=== PATIENT | female | born 1940 ===

== ENCOUNTER 2020-08-16 11:04 | Day surgery (SDC) | payer MEDICARE, BC ==
[~2020-08-16] VITALS: Ht 156.2 cm; Wt 63.5 kg
[2020-08-16] VITALS (10 sets, daily range): BP systolic 109–150; BP diastolic 52–87; PULSE 55–81; TEMP 97.5–98.5
[2020-08-16 12:26] LABS: HEMATOCRIT 41.7 % (37.0-47.0); HEMOGLOBIN 12.3 g/dl (12.5-16.0); MEAN CELL VOLUME 79 fl (80.0-100.0); MEAN CORPUSCULAR HEMOGLOBIN 23 pg (27.0-31.0); MEAN CORPUSCULAR HGB CONC 30 g/dl (33.0-37.0); MEAN PLATELET VOLUME 9.6 fl (7.4-10.4); PLATELET COUNT 728 K/mm3 (130-400); REDCELL DISTRIBUTION WIDTH-CV 15.7 % (11.5-14.5)
[2020-08-16] MEDS ORDERED: TYLENOL 325MG325 MG PO (12:35)
[2020-08-16] MEDS ORDERED: ASPIRIN E.C. 8181 MG PO (12:35)
[2020-08-16] MEDS ORDERED: NORVASC 5MG5 MG/TAB PO (12:35)
[2020-08-16] MEDS ORDERED: CALCIUM 600-D 61 TAB PO (12:36)
[2020-08-16] MEDS ORDERED: ESTRACE0.1 MG/GM VG (12:37)
[2020-08-16] MEDS ORDERED: PEPCID 20MG TAB20 MG PO (12:37)
[2020-08-16] MEDS ORDERED: SYNTHROID0.075 MG/T PO (12:38)
[2020-08-16] MEDS ORDERED: CLARITIN 1010 MG/TAB PO (12:38)
[2020-08-16] MEDS ORDERED: COZAAR 50MG50 MG/TAB PO (12:39)
[2020-08-16] MEDS ORDERED: BLINK TEARS15 ML OP (12:40)
[2020-08-16] MEDS ORDERED: PROLIA60 MG/ML INJ (12:42)
--- NOTE | 2020-08-16 12:43 | NUR ---
TO RM 4 AT 1139- CALL LIGHT IN REACH AND DAUGHTER
--- NOTE | 2020-08-16 19:26 | NUR ---
Patient resting in bed. Spouse at bedside. SHe is more awake now. Vss on O2. Robotic lap site x5 edges well approximated. Garcia to DD with great yellow clear urine output. She is tolerating clear liquids without nausea. Patient was hesitent to take any medications. Did talk her into taking tyelnol per eras schedule. She reports gas pain, offered to get patient out of bed, she reports she was not quite ready yet. Scds ble. Ivf per orders to Lfa. Bedside report to night nurse
[2020-08-17 00:28] VITALS: BP 129/60; PULSE 51; TEMP 97.6
[2020-08-17 04:17] VITALS: BP 134/72; PULSE 58; TEMP 97.5
--- NOTE | 2020-08-17 06:00 | NUR ---
PATIENT A+OX4, HAD AN UNEVENTFUL NIGHT. VSS, PAIN MANAGE WITH TYLENOL AND TORADOL SCHEDULE. ABDOMINAL LAP SITE INTACT WITH NO DRAINAGE NOTED. ELDRIDGE CATHETER DISCONTINUED AT 05:45AM. PATIENT TOLERATED GENERAL DIET, DENIES NAUSEA/VOMITING. WILL CONTINUE TO MONITOR.
[2020-08-17 07:54] VITALS: BP 112/46; PULSE 57; TEMP 98
--- NOTE | 2020-08-17 08:00 | NUR ---
Patient is in bed, alert and oriented x 4, vital signs stable, reports no pain, tylenol in schedule. No nausea or vomiting. The 5 lap. sites are dry, and well approximated. No further needs at the moment. Call light within reach.
--- NOTE | 2020-08-17 10:12 | NUR ---
Initial visit; Patient thanked Architect Internship for looking in on her and offering God's blessings.
--- NOTE | 2020-08-17 10:44 | NUR ---
AGREE WITH JUAN R'S ASSESSMENTS CHARTED THIS AM.
--- NOTE | 2020-08-17 11:33 | NUR ---
Image Assembler met with the patient and the patient's Ameya to complete intake. The patient lives in [place] with Ameya. The patient has cane but does not need it and is independent. The patient's PCP is Dr. Aniceto Muniz and patient receives medications from [place] [facility]. The patient does not have advanced directives in the EMR but states she has forms to complete at home. The patient plans to return home at discharge with no concerns about doing so. *Discharge disposition: Home with spouse, Ameya*
[2020-08-17 12:00] VITALS: BP 104/47; PULSE 55; TEMP 98.4
--- NOTE | 2020-08-17 12:56 | NUR ---
Patient is resting in bed. She was able to transfer herself to the chair. She is waiting for lunch. No further needs at this time.
[2020-08-17 15:37] VITALS: BP 122/62; PULSE 57; TEMP 98.6
--- NOTE | 2020-08-17 16:06 | NUR ---
PT UP TO BR VOIDED AND RETURNED TO RECLINER WITH SBA. AMBULATES WITH SLOW STEADY GAIT.
--- NOTE | 2020-08-17 16:22 | NUR ---
UP DATED DR MILLER ON PT STATUS. DISCHARGE ORDERS RECIEVED.
--- NOTE | 2020-08-17 16:42 | NUR ---
Discharge instructions were provided to the patients, questions were answered.
== END 2020-08-17 16:40 | disposition home or self-care (01) ==
LOC: SDCO 11:04 → SURG 16:15 → SDCO 16:15 → EDSTATUS 16:15 → SURG 16:21 → SDCO 08-17 16:40
PROVIDERS: Registered Nurse
DX: N99.3 Prolapse of vaginal vault after hysterectomy (principal); I10 Essential (primary) hypertension; E07.9 Disorder of thyroid, unspecified; K21.9 Gastro-esophageal reflux disease without esophagitis; Z85.3 Personal history of malignant neoplasm of breast; Z20.822 Contact with and (suspected) exposure to COVID-19; Z79.899 Other long term (current) drug therapy; Z79.890 Hormone replacement therapy; Z79.82 Long term (current) use of aspirin
CPT/HCPCS: OP; A4314; C1781; J0690; J1885; J2405; J2704; J3010; J7120

== ENCOUNTER 2021-07-03 07:18 | Day surgery (SDC) | payer MEDICARE, BC ==
[~2021-07-03] VITALS: Ht 157.5 cm; Wt 62.5 kg
[~2021-07-03 07:18] MED LIST: ASPIRIN E.C. 8181 MG PO; BLINK TEARS15 ML OP; CALCIUM 600-D 61 TAB PO; CLARITIN 1010 MG/TAB PO; COZAAR 50MG50 MG/TAB PO; ESTRACE0.1 MG/GM VG; NORVASC 5MG5 MG/TAB PO; PEPCID 20MG TAB20 MG PO; PROLIA60 MG/ML INJ; SYNTHROID0.075 MG/T PO; TYLENOL 325MG325 MG PO
[2021-07-03] MEDS ORDERED: GENTLE LAXATIVE5 MG PO (07:50)
[2021-07-03 07:53] VITALS: BP 145/73; PULSE 72; TEMP 97.9
[2021-07-03 08:25] LABS: BASO # 0.2 K/mm3 (0.0-0.2); BASO % 1.4 % (0.0-2.0); EOS # 0.4 K/mm3 (0.0-0.7); EOS % 2.7 % (0.0-4.0); GRAN # 9.6 K/mm3 (1.4-6.5); GRAN % 70.4 % (42.2-75.2); HEMATOCRIT 42.5 % (37.0-47.0); HEMOGLOBIN 12.2 g/dl (12.5-16.0); LYMPH # 2.5 K/mm3 (1.2-3.4); LYMPH % 18.2 % (20.0-51.0); MEAN CELL VOLUME 75 fl (80.0-100.0); MEAN CORPUSCULAR HEMOGLOBIN 22 pg (27-31); MEAN CORPUSCULAR HGB CONC 29 g/dl (33.0-37.0); MEAN PLATELET VOLUME 9.7 fl (7.4-10.4); MONO # 0.9 K/mm3 (0.1-0.6); MONO % 6.7 % (1.7-9.3); PLATELET COUNT 1028 K/mm3 (130-400); RED BLOOD COUNT 5.64 M/mm3 (4.10-5.30); REDCELL DISTRIBUTION WIDTH-CV 16.4 % (11.5-14.5)
[2021-07-03 09:30] VITALS: BP 117/63; PULSE 66; TEMP 97.9
[2021-07-03 09:45] VITALS: BP 116/65; PULSE 67
[2021-07-03 10:00] VITALS: BP 129/60; PULSE 71
--- NOTE | 2021-07-03 10:13 | NUR ---
0930: Patient arrived back into bay 6 from PACU. Patient is alert and oriented. Vital signs stable. Report received from FADI Schumacher. Patient requesting muffin and juice. Patient rating pain 0/10. Denies nausea. Call light left within reach. at bedside. 0945: Patient vitally stable. Tolerating food and drink well. Denies pain or nausea at this time. 1005: Patient able to void successfully. Meets discharge criteria. IV removed without complications. Went through discharge instructions with patient and . Patient got dressed. Escorted to patient entrance via wheelchair. Patient got into personal vehicle unassisted and left in the care of her , Ameya.
[2021-07-03 11:42] VITALS: BP 117/63; PULSE 80
== END 2021-07-03 10:10 | disposition home or self-care (01) ==
LOC: SDCO 07:18
PROVIDERS: Pathology Anatomic Pathology & Clinical Pathology
DX: D47.3 Essential (hemorrhagic) thrombocythemia (principal); D72.829 Elevated white blood cell count, unspecified; Z79.82 Long term (current) use of aspirin
CPT/HCPCS: J2704; J7120

== ENCOUNTER 2023-11-25 17:59 | Observation (INO) | payer MEDICARE, BC ==
[~2023-11-25] VITALS: Ht 157.5 cm; Wt 62.9 kg
[~2023-11-25 17:59] MED LIST changes: +GENTLE LAXATIVE5 MG PO
[2023-11-25 18:45] LABS: BASO # 0.1 K/mm3 (0.0-0.2); BASO % 0.9 % (0.0-2.0); EOS # 0.1 K/mm3 (0.0-0.7); EOS % 0.5 % (0.0-4.0); GRAN # 12.9 K/mm3 (1.4-6.5); GRAN % 83.3 % (42.2-75.2); HEMATOCRIT 40.9 % (37.0-47.0); HEMOGLOBIN 12.9 g/dl (12.5-16.0); LYMPH # 1.7 K/mm3 (1.2-3.4); LYMPH % 10.8 % (20.0-51.0); MEAN CELL VOLUME 95 fl (80.0-100.0); MEAN CORPUSCULAR HEMOGLOBIN 30 pg (27-31); MEAN CORPUSCULAR HGB CONC 32 g/dl (33.0-37.0); MEAN PLATELET VOLUME 9.2 fl (7.4-10.4); MONO # 0.6 K/mm3 (0.1-0.6); MONO % 4.1 % (1.7-9.3); PLATELET COUNT 619 K/mm3 (130-400); RED BLOOD COUNT 4.32 M/mm3 (4.10-5.30); REDCELL DISTRIBUTION WIDTH-CV 13.7 % (11.5-14.5)
[2023-11-25 19:02] LABS: ALBUMIN 4.2 g/dL (3.4-4.8); BILIRUBIN,TOTAL 0.5 mg/dL (0.2-1.2); CALCIUM 10.3 mg/dL (8.4-10.2); CREATININE, serum 0.88 mg/dL (0.57-1.11); POTASSIUM 3.9 mEq/L (3.5-4.5)
[2023-11-25] MEDS ORDERED: NS 1,000 ML IV ONE (19:30)
[2023-11-25 20:00] LABS: COLLECTION METHOD CLEAN CATCH
[2023-11-25 20:04] LABS: PH 6.5 (5.0-8.5); URINE APPEARANCE CLEAR (CLEAR/HAZY); URINE BLOOD NEGATIVE (NEGATIVE); URINE COLOR YELLOW (YELLOW); URINE GLUCOSE NEGATIVE (NEGATIVE); URINE KETONE NEGATIVE (NEGATIVE); URINE NITRATE NEGATIVE (NEGATIVE); URINE PROTEIN(semi-quant) NEGATIVE (NEGATIVE); URINE UROBILINOGEN 0.2 E.U/dL (0.2-1.0)
[2023-11-25] MEDS ORDERED: COZAAR100 MG PO (20:24)
[2023-11-25] MEDS ORDERED: PRAVACHOL10 MG PO (20:24)
[2023-11-25] MEDS ORDERED: HYDROXYURE500 MG/CAP PO (20:25)
[2023-11-25] MEDS ORDERED: NS 1,000 ML IV SCH (20:30)
[2023-11-25] MEDS ORDERED: Ondansetron 4 MG/2 ML VIAL IV PRN (20:30)
[2023-11-25] MEDS ORDERED: Bisacodyl 5 MG TAB PO PRN (20:30)
[2023-11-25] MEDS ORDERED: Docusate Sodium 100 MG CAP PO PRN (20:30)
[2023-11-25] MEDS ORDERED: Polyethylene Glycol 3350 17 GM PDS PO PRN (20:30)
[2023-11-25 21:56] VITALS: BP 166/77; PULSE 87; TEMP 98.2
[2023-11-25] MEDS ORDERED: Losartan 50 MG TAB PO SCH (22:21)
[2023-11-25] MEDS ORDERED: Pravastatin 20 MG TAB PO SCH (22:22)
[2023-11-25] MEDS ORDERED: SYSTANE 0.4%-0.1 SOL OU (22:25)
[2023-11-25] MEDS ORDERED: Carboxymethylcellulose PF Ophth 0.4 ML DROPPERETTE OP PRN (22:30)
--- NOTE | 2023-11-25 23:00 | NUR ---
PATIENT ORIENTED TO ROOM AFTER ARRIVING AT APPROXIMATELY 2150. WAS ABLE TO AMBULATE WITHOUT ASSISTANCE FROM WHEELCHAIR TO BED, GAIT STEADY. EDUCATED PATIENT SIGN WIRER LIGHT USE AND ENSURED CALL LIGHT IS WITHIN REACH. TELEMETRY MONITORING IMPLEMENTED PER HOSPITALIST ORDERS. PATIENT PRESENTLY OFF UNIT TO RADIOLOGY FOR CT OF HEAD AND NECK WITH CONTRAST. UPON ASSESSMENT, PATIENT DENIES ANY CHEST PAIN, PALPITATIONS, SHORTNESS OF BREATH, OR DIZZINESS.
[2023-11-25] MEDS ORDERED: Iohexol 300 - 100 ML VIAL IV ONE (23:03)
[2023-11-25] MEDS ORDERED: NS 100 ML IV ONE (23:08)
[2023-11-26] VITALS (11 sets, daily range): BP systolic 122–155; BP diastolic 68–73; PULSE 67–74; TEMP 97.9–98.4
--- NOTE | 2023-11-26 07:00 | NUR ---
appears to be dozing, arouses easily, bedside shift report received from FADI Hogan
--- NOTE | 2023-11-26 08:15 | NUR ---
resting in bed, full assessment completed, see interventions for further info, student EXHIBITOR SALES in to assit patient up to bathroom
[2023-11-26] MEDS ORDERED: amLODIPine 5 MG TAB PO SCH (09:00)
[2023-11-26] MEDS ORDERED: Calcium Carb/Vit D3 500 mg-5 mcg(200 Units) TAB PO SCH (09:00)
[2023-11-26] MEDS ORDERED: Hydroxyurea 500 MG CAP PO SCH (09:00)
[2023-11-26 09:03] LABS: BASO # 0.1 K/mm3 (0.0-0.2); BASO % 0.8 % (0.0-2.0); EOS # 0.1 K/mm3 (0.0-0.7); GRAN # 7.6 K/mm3 (1.4-6.5); GRAN % 68.5 % (42.2-75.2); LYMPH # 2.4 K/mm3 (1.2-3.4); LYMPH % 21.6 % (20.0-51.0); MEAN CELL VOLUME 96 fl (80.0-100.0); MEAN CORPUSCULAR HGB CONC 30 g/dl (33.0-37.0); MEAN PLATELET VOLUME 9.6 fl (7.4-10.4); MONO # 0.8 K/mm3 (0.1-0.6); MONO % 7.6 % (1.7-9.3); PLATELET COUNT 572 K/mm3 (130-400); RED BLOOD COUNT 3.53 M/mm3 (4.10-5.30); REDCELL DISTRIBUTION WIDTH-CV 13.9 % (11.5-14.5)
[2023-11-26 09:07] LABS: HEMATOCRIT 33.9 % (37.0-47.0); HEMOGLOBIN 10.3 g/dl (12.5-16.0); MEAN CORPUSCULAR HEMOGLOBIN 29 pg (27-31)
[2023-11-26 09:12] LABS: CALCIUM 9.5 mg/dL (8.4-10.2); CREATININE, serum 0.7 mg/dL (0.57-1.11); POTASSIUM 3.8 mEq/L (3.5-4.5)
--- NOTE | 2023-11-26 11:00 | NUR ---
to radiology for MRI Per WC
--- NOTE | 2023-11-26 11:45 | NUR ---
returned from MRI per WC and telemetry back on
--- NOTE | 2023-11-26 12:52 | NUR ---
resting in bed, has ordered lunch, denies needs
--- NOTE | 2023-11-26 13:19 | NUR ---
D: Cook Specialty stopped by room on rounds. A: Pt was resting and content. Pt has no needs right now. P: Cook Specialty informed pt that if she needed anything from the linotype operator area to let her nurse know. Cook Specialty will follow up as needed.
--- NOTE | 2023-11-26 14:18 | NUR ---
Maintenance Porter met with patient to discuss discharge planning. Patient advised she may be released later today. Patient lives outside of [place] with her , Ameya (ph#[phone]) [address] Dr[address] Marquez for primary care. Patient gets her medications from [facility] with no difficulties and does not use any DME. Patient is independent with ADLS and plans to return home at time of discharge. Patient does not have DPOA-HC and does not wish to complete one at this time. Discharge Plan: Home
--- NOTE | 2023-11-26 16:15 | NUR ---
resting in bed, asking about going home, spoke with Dr Flores and we are still waiting on results of echo
--- NOTE | 2023-11-26 16:45 | NUR ---
informed her we are still waiting on results of echo, will order supper
--- NOTE | 2023-11-26 18:00 | NUR ---
INT and telemetry discontinued, discharge instructions given to patient, verbalizes understanding, will call when here for discharge
--- NOTE | 2023-11-26 18:39 | NUR ---
remains resting in bed waiting on her ride home
--- NOTE | 2023-11-26 18:57 | NUR ---
bedside shift report given to FADI Hogan
--- NOTE | 2023-11-26 19:05 | NUR ---
PATIENT OFF UNIT AT THIS TIME. ESCORTED OUT VIA WHEELCHAIR BY [facility] STAFF.
== END 2023-11-26 19:05 | disposition home or self-care (01) ==
LOC: COL.ER 17:59 → MEDICAL 20:55
PROVIDERS: Nurse Practitioner Family; Physician Assistant; ADMIT Internal Medicine
DX: A41.9 Sepsis, unspecified organism (principal); R65.10 Systemic inflammatory response syndrome (SIRS) of non-infectious origin without acute organ dysfunction; R55 Syncope and collapse; I10 Essential (primary) hypertension; E78.5 Hyperlipidemia, unspecified; E03.9 Hypothyroidism, unspecified; I21.4 Non-ST elevation (NSTEMI) myocardial infarction; E87.20 Acidosis, unspecified; E83.52 Hypercalcemia; D75.839 Thrombocytosis, unspecified; Z79.899 Other long term (current) drug therapy; Z79.890 Hormone replacement therapy; Z15.89 Genetic susceptibility to other disease
CPT/HCPCS: G0378; J1650; J7030; Q9967